=== PATIENT | female | born 1995 | race Caucasian/White ===

== ENCOUNTER 2016-05-30 20:27 | Emergency (ER) | payer OTHER ==
--- NOTE | 2016-05-30 20:46 | ER Document Report ---
ED Medical Screen (RME) - General Chief Complaint: Nausea/Vomiting/Diarrhea Stated Complaint: VOMITING Time seen by provider: 20:44 Mode of Arrival: Wheelchair Information source: Patient Notes: 21 yo female presents to ed for NVD since this am when she woke up. Vomited about 15 times today. last time around 1830 - HPI Onset: This morning Onset/Duration: Persistent Severity: Moderate Pain Level: 3 Associated Symptoms: Abdominal pain, Diarrhea, Vomiting, Other - numb hands and feet Exacerbated by: Denies Relieved by: Denies Similar symptoms previously: No Recently seen / treated by doctor: No - Related Data Smoking: Non-smoker Frequency of alcohol use: Social Drug Abuse: Marijuana Physical Exam - Vital signs Vitals: Temp Pulse Resp BP Pulse Ox 98.2 F 91 20 140/76 H 100 05/30/16 20:33 05/30/16 20:33 05/30/16 20:33 05/30/16 20:33 05/30/16 20:33 Course - Vital Signs Vital signs: Temp Pulse Resp BP Pulse Ox 98.2 F 91 20 140/76 H 100 05/30/16 20:33 05/30/16 20:33 05/30/16 20:33 05/30/16 20:33 05/30/16 20:33
[2016-05-30] MEDS ORDERED: ONDANSETRON 4 MG TAB.RAPDIS PO ONE (20:47)
[2016-05-30 21:52] LABS: ABSOLUTE LYMPHOCYTES (AUTO) 1.9 10^3/uL (0.5-4.7); ABSOLUTE MONOCYTES (AUTO) 0.7 10^3/uL (0.1-1.4); BASOPHILS % (AUTO) 0.4 % (0-2); EOSINOPHILS % (AUTO) 0.4 % (0-6); HEMATOCRIT 38.2 % (36.0-47.0); HGB HCT DIFFERENCE 0.8; LYMPHOCYTES % (AUTO) 19.8 % (13-45); MEAN CORPUSCULAR HEMOGLOBIN 29.8 pg (27.0-33.4); MEAN CORPUSCULAR HGB CONC 34.1 g/dL (32.0-36.0); MEAN CORPUSCULAR VOLUME 88 fl (80-97); MONOCYTES % (AUTO) 7.1 % (3-13); RED BLOOD COUNT 4.36 10^6/uL (3.72-5.28); RED CELL DISTRIBUTION WIDTH 12.8 % (11.5-14.0); SEGMENTED NEUTROPHILS % (AUTO) 72.3 % (42-78); WHITE BLOOD COUNT 9.7 10^3/uL (4.0-10.5)
[2016-05-30 22:18] LABS: ALANINE AMINOTRANSFERASE 52 U/L (9-52); ALBUMIN 4.3 g/dL (3.5-5.0); ALKALINE PHOSPHATASE 120 U/L (38-126); ANION GAP 15 (5-19); ASPARTATE AMINO TRANSFERASE 30 U/L (14-36); BILIRUBIN,TOTAL 0.9 mg/dL (0.2-1.3); BLOOD UREA NITROGEN 14 mg/dL (7-20); CALCIUM 9.9 mg/dL (8.4-10.2); CARBON DIOXIDE 25 mmol/L (22-30); CHLORIDE 104 mmol/L (98-107); CREATININE RESULT 0.63 mg/dL (0.52-1.25); GLUCOSE 82 mg/dL (75-110); POTASSIUM 4.5 mmol/L (3.6-5.0); SODIUM 143.6 mmol/L (137-145); TOTAL PROTEIN 7.6 g/dL (6.3-8.2)
[2016-05-31] MEDS ORDERED: NORMAL SALINE 1000 ML 2,000 ML IV ONE (00:04)
[2016-05-31] MEDS ORDERED: KETOROLAC TROMETHAMINE INJ/PF 30 MG/1 ML SDV IV ONE (01:11)
[2016-05-31] MEDS ORDERED: PROCHLORPERAZINE EDISYLATE INJ 10 MG/2 ML VIAL IV ONE (01:11)
[2016-05-31] MEDS ORDERED: DIPHENHYDRAMINE HCL 50 MG/ML VIAL IV ONE (01:11)
[2016-05-31] MEDS ORDERED: ONDANSETRON ODT 4 MG TAB (6 TAB/DSPK) PO PRN (01:19)
--- NOTE | 2016-05-31 01:19 | ER Document Report ---
ED General - General Chief Complaint: Vomiting Stated Complaint: VOMITING Mode of Arrival: Wheelchair Notes: Patient is a 21-year-old female who presents with acute onset of vomiting 5-6 hours prior to arrival. Describes it as a watery, nonbilious vomiting. She has been unable to keep water down at home. This is what prompted her come to the emergency department. Denies a recent history of similar symptoms or known sick contacts. Symptoms have gradually improved since onset. She is not tried anything to improve her symptoms and has not noticed anything other than trying oral intake worsens or symptoms. Denies any associated diarrhea or abdominal pain. No fever. She has not seen her primary care physician regarding today's concerns. TRAVEL OUTSIDE OF THE [place] IN LAST 30 DAYS: No - Related Data Allergies/Adverse Reactions: No Known Allergies Allergy (Verified 05/30/16 20:52) Past Medical History - General Information source: Patient - Social History Smoking Status: Never Smoker Chew tobacco use (# tins/day): No Frequency of alcohol use: Social Drug Abuse: Marijuana Lives with: Spouse/Significant other Family History: Reviewed & Not Pertinent Patient has suicidal ideation: No Patient has homicidal ideation: No Review of Systems - Review of Systems Notes: Constitutional: Negative for fever. HENT: Negative for sore throat. Eyes: Negative for visual changes. Cardiovascular: Negative for chest pain. Respiratory: Negative for shortness of breath. Gastrointestinal: Negative for abdominal pain, positive for vomiting Genitourinary: Negative for dysuria. Musculoskeletal: Negative for back pain. Skin: Negative for rash. Neurological: Negative for headaches, weakness or numbness. 10 point ROS negative except as marked above and in HPI. Physical Exam - Vital signs Vitals: Temp Pulse Resp BP Pulse Ox 98.2 F 91 20 140/76 H 100 05/30/16 20:33 05/30/16 20:33 05/30/16 20:33 05/30/16 20:33 05/30/16 20:33 Interpretation: Hypertensive Notes: PHYSICAL EXAMINATION: GENERAL: Well-appearing, well-nourished and in no acute distress. HEAD: Atraumatic, normocephalic. EYES: Pupils equal round and reactive to light, extraocular movements intact, sclera anicteric, conjunctiva are normal. ENT: nares patent, oropharynx clear without exudates. Moist mucous membranes. NECK: Normal range of motion, supple without lymphadenopathy LUNGS: Breath sounds clear to auscultation bilaterally and equal. No wheezes rales or rhonchi. HEART: Regular rate and rhythm without murmurs ABDOMEN: Soft, nontender, normoactive bowel sounds. No guarding, no rebound. No masses appreciated. EXTREMITIES: Normal range of motion, no pitting or edema. No cyanosis. NEUROLOGICAL: No focal neurological deficits. Moves all extremities spontaneously and on command. PSYCH: Normal mood, normal affect. SKIN: Warm, Dry, normal turgor, no rashes or lesions noted. Course - Re-evaluation Re-evalutation: 05/31/16 04:11 Presentation of an overall well-appearing patient in no acute distress with complaints of nausea, vomiting.. This is consistent with likely viral induced vomiting versus food contamination. Patient has no abdominal tenderness on exam and specifically no tenderness in the RLQ, LLQ, RUQ. Overall well hydrated on exam. Able to tolerate oral intake here in the emergency department. Low clinical suspicion for any acute life-threatening etiology based on exam and history including acute cholecystitis, SBO, appendicitis, nephrolithiasis, or pylonephritis. CMP without evidence of acute hepatitis or significant dehydration. Will plan for discharge at this time with return precautions and followup recommendations. - Vital Signs Vital signs: Temp Pulse Resp BP Pulse Ox 98.2 F 91 20 140/76 H 100 05/30/16 20:33 05/30/16 20:33 05/30/16 20:33 05/30/16 20:33 05/30/16 20:33 - Laboratory Result Diagrams: 05/30/16 21:20 05/30/16 21:20 Discharge - Discharge Clinical Impression: Dehydration Vomiting alone Qualifiers: Vomiting type: unspecified Vomiting Intractability: non-intractable Qualified Code(s): R11.11 - Vomiting without nausea Migraine headache Qualifiers: Migraine type: unspecified Status migrainosus presence: without status migrainosus Intractability: not intractable Qualified Code(s): G43.909 - Migraine, unspecified, not intractable, without status migrainosus Condition: Good Disposition: HOME, SELF-CARE Additional Instructions: Your symptoms are likely due to a viral illness and should resolve in the next several days. Continue to stay hydrated with plenty of solution such as Gatorade or Pedialyte. You are being prescribed Zofran to take as needed for nausea and vomiting. Please return if you develop if you have a worsening headache, sudden and severe headache, confusion, slurred speech, facial droop, weakness or numbness in any arm or leg, extreme fatigue, or other symptoms that concern you.severe abdominal pain, pass out, become unable to tolerate any oral fluids for 12 more hours, or any other symptoms that are concerning to you. Referrals: MARCELINO CLEVELAND FNP [Primary Care Provider] - Follow up in 3-5 days
[2016-05-31 04:44] VITALS: BP 112/69
== END 2016-05-31 02:05 | disposition home or self-care (01) ==
LOC: ER 20:27
DX: E86.0 Dehydration (principal); R11.11 Vomiting without nausea; G43.909 Migraine, unspecified, not intractable, without status migrainosus; R19.7 Diarrhea, unspecified; R10.9 Unspecified abdominal pain; R20.0 Anesthesia of skin
CPT/HCPCS: 99284; 96361; 96374; 96375; 36415; 84703; 85025; 80053; J1200; J1885; J0780; J7030

== ENCOUNTER 2018-05-07 08:08 | Emergency (ER) | payer OTHER ==
[2018-05-07 09:13] LABS: APPEARANCE,URINE SLIGHTLY-CLOUDY; BILIRUBIN,URINE NEGATIVE (NEGATIVE); COLOR,URINE YELLOW; GLUCOSE, URINE NEGATIVE (NEGATIVE); KETONES,URINE NEGATIVE (NEGATIVE); LEUKOCYTE ESTERASE,URINE SMALL (NEGATIVE); NITRITE,URINE NEGATIVE (NEGATIVE); PROTEIN,URINE 30 mg/dL (NEGATIVE); URINE SPECIFIC GRAVITY 1.013; UROBILINOGEN,URINE NEGATIVE mg/dL (<2.0)
[2018-05-07 09:18] LABS: ABSOLUTE LYMPHOCYTES (AUTO) 1.3 10^3/uL (0.5-4.7); ABSOLUTE MONOCYTES (AUTO) 0.6 10^3/uL (0.1-1.4); ABSOLUTE NEUT (AUTO) 5.9 10^3/uL (1.7-8.2); BASOPHILS % (AUTO) 0.2 % (0-2); HEMATOCRIT 37.7 % (36.0-47.0); HEMOGLOBIN 12.9 g/dL (12.0-15.5); LYMPHOCYTES % (AUTO) 16.6 % (13-45); MEAN CORPUSCULAR HEMOGLOBIN 30.8 pg (27.0-33.4); MEAN CORPUSCULAR HGB CONC 34.3 g/dL (32.0-36.0); MEAN CORPUSCULAR VOLUME 90 fl (80-97); MONOCYTES % (AUTO) 7.2 % (3-13); PLATELET COUNT 255 10^3/uL (150-450); RED CELL DISTRIBUTION WIDTH 13.1 % (11.5-14.0); TOTAL CELLS COUNTED % (AUTO) 100 %; WHITE BLOOD COUNT 7.7 10^3/uL (4.0-10.5)
--- NOTE | 2018-05-07 09:20 | ER Document Report ---
ED General - General Chief Complaint: Abdominal Pain Stated Complaint: ABDOMINAL PAIN Time Seen by Provider: 05/07/18 09:19 Mode of Arrival: Ambulatory Information source: Patient, Relative TRAVEL OUTSIDE OF THE [place] IN LAST 30 DAYS: No - HPI Notes: 20-year-old female presents ED with with complaints of sudden onset right lower quadrant abdominal pain with nausea and vomiting since yesterday. Reports pain radiates to her back, 7 and 10, sharp and constant. Feels better when she is unsure. Tried [id number] Tylenol without relief last night. reports that she did have 4-5 alcoholic beverages last night which did not help or worsen her abdominal pain. states she ended her menses yesterday. Denies any diarrhea. Denies any new foods, travel or medications. Denies fevers, chills, chest pain,palpitations, shortness of breath, dyspnea, diarrhea, hematuria, weakness, bowel or bladder dysfunction, saddle anesthesia, numbness or tingling in bilateral upper or lower extremities equally, muscle paralysis or rash. - Related Data Allergies/Adverse Reactions: No Known Allergies Allergy (Verified 05/30/16 20:52) Past Medical History - General Information source: Patient - Social History Smoking Status: Never Smoker Chew tobacco use (# tins/day): No Frequency of alcohol use: Heavy Drug Abuse: Marijuana Family History: Reviewed & Not Pertinent Patient has suicidal ideation: No Patient has homicidal ideation: No Renal/ Medical History: Denies: Hx Peritoneal Dialysis Review of Systems - Review of Systems Constitutional: No symptoms reported EENT: No symptoms reported Cardiovascular: No symptoms reported Respiratory: No symptoms reported Gastrointestinal: See HPI Genitourinary: No symptoms reported Female Genitourinary: No symptoms reported Musculoskeletal: No symptoms reported Skin: No symptoms reported Hematologic/Lymphatic: No symptoms reported Neurological/Psychological: No symptoms reported Physical Exam - Vital signs Vitals: Temp Pulse Resp BP Pulse Ox 97.8 F 76 16 126/76 H 99 05/07/18 08:10 05/07/18 08:10 05/07/18 08:10 05/07/18 08:10 05/07/18 08:10 - Notes Notes: PHYSICAL EXAMINATION: GENERAL: Well-appearing, well-nourished and in no acute distress. HEAD: Atraumatic, normocephalic. EYES: Pupils equal round and reactive to light, extraocular movements intact, conjunctiva are normal. ENT: Nares patent, oropharynx clear without exudates. Moist mucous membranes. NECK: Normal range of motion, supple without lymphadenopathy LUNGS: Breath sounds clear to auscultation bilaterally and equal. No wheezes rales or rhonchi. HEART: Regular rate and rhythm without murmurs ABDOMEN: Soft, nondistended abdomen. Right lower quadrant tenderness on palpation with rebound, negative McBurney sign, no guarding, no rebound. No masses appreciated. right CVA tenderness, no left cva tenderness. Female : deferred Musculoskeletal: Normal range of motion, no pitting or edema. No cyanosis. NEUROLOGICAL: Cranial nerves grossly intact. Normal speech, normal gait. Normal sensory, motor exams PSYCH: Normal mood, normal affect. SKIN: Warm, Dry, normal turgor, no rashes or lesions noted. Course - Re-evaluation Re-evalutation: 05/07/18 09:32 32-year-old female afebrile vitals stable and in mild distress presents to the ED for complaints of onset nausea with right lower quadrant right CVA tenderness that started last night, states she did drink some alcohol without relief. CBC negative for leukocytosis or anemia, CMP negative for hepatic or renal dysfunction. Urinalysis does show leuks, hematuria sites along with proteinuria. CT abdomen and pelvis negative per radiology for any acute findings such as appendicitis, renal calculi, free fluid, intra-abdominal infection, etc. patient given Toradol IVP with great relief, reduction of pain from 7 out of 10 to 4 out of 10. Serum negative alcohol serum negative as well as drug screen besides being positive for marijuana. Discussed the patient that she does have pyelonephritis, will give her 1 g Rocephin now as well as starting her on outpatient antibiotic therapy. Advised to increase p.o. fluid. I have reevaluated this patient multiple times and no significant life threatening changes, no signs of toxicity, sepsis or peritonitis are noted. The patient and I have discussed the diagnosis and risks , and we agree with discharging home and close follow-up. We also discussed returning to the Emergency Department immediately if new or worsening symptoms occur with the understanding that symptoms and presentations can change. At this time will discharge with return precautions and follow-up recommendations. Verbal discharge instructions given a the bedside and opportunity for questions given. We have discussed the symptoms which are most concerning (e.g. , vomiting, fevers, worsening abdominal pain, saddle anesthesia, urinary or bowel incontinence or retention, changing or worsening pain) that necessitate immediate return. Medication warnings reviewed. All questions and concerns answered by this provider. Patient is in agreement with this plan and has verbalized understanding of return precautions and the need for primary care follow-up in the next 24-72 hours. Patient verbalized understanding of plan of care and agree with plan of care. - Vital Signs Vital signs: Temp Pulse Resp BP Pulse Ox 97.5 F 74 16 113/72 98 05/07/18 13:06 05/07/18 13:06 05/07/18 13:06 05/07/18 13:06 05/07/18 13:06 - Laboratory Result Diagrams: 05/07/18 09:01 05/07/18 09:01 Laboratory results interpreted by me: 05/07/18 08:47 Urine Protein 30 H Urine Blood SMALL H Ur Leukocyte Esterase SMALL H Discharge - Discharge Clinical Impression: Pyelonephritis Condition: Stable Disposition: HOME, SELF-CARE Instructions: Abdominal Pain ([facility]), Ciprofloxacin ([facility]), Pyelonephritis ([facility]), Rocephin ([facility]), Toradol Injection ([facility]), Observation for Appendicitis ([facility]) Additional Instructions: Pyelonephritis Your evaluation shows evidence of pyelonephritis. This is an infection in the kidney. Typical symptoms are fever, pain in the flank, pain on urination, and frequent urination. Many cases of pyelonephritis can be treated at home. Hospital care may be necessary for patients who are very ill, or elderly or . Pyelonephritis is treated with antibiotics. Be sure to take all the medication as prescribed. Drink plenty of liquids (about three quarts per day) . You may take acetaminophen for fever. You should feel significantly improved within two days. You should have a recheck of your urine in about one week to insure that the infection is gone. Return for a re-examination if your symptoms worsen in any way -- such as high fever, shaking chills, severe weakness or dizziness, severe pain, or inability to pass your urine. Abdominal Pain There are many causes of abdominal pain. Pain can mean a serious problem requiring surgery (such as appendicitis). It can also be an innocent problem that goes away on its own (such as a viral infection). Often, time must pass to determine the cause of pain. The physician does not feel that hospitalization is necessary, at present. Things may change within the next 24 hours. Call the doctor or come back for re- examination if any problems occur, such as: (1) Pain that becomes more severe, steady, or becomes concentrated in one specific area. Also, pain that is more severe with movement or coughing. (2) Vomiting that persists or becomes more frequent. (3) Blood in the vomitus, urine, or bowel movements. Blood in the stool may have a tarry or black appearance. (4) Shaking chills or fever greater than 100 degrees F. (5) The abdomen becomes more distended or swollen. (6) Bowel movements cease. (7) Failure to improve as expected. Your urinalysis showed he had a pyelonephritis. Your blood work was negative for blood or infection, electrolytes were normal. Your CT was negative for any acute findings. Return immediately for any new or worsening symptoms. Follow up with primary care provider, call tomorrow to make followup appointment. Prescriptions: Ciprofloxacin HCl [Cipro 500 mg Tablet] 500 mg PO BID #20 tablet Phenazopyridine HCl [Pyridium] 200 mg PO TIDP PRN #9 tablet PRN Reason: Forms: Return to Work Referrals: MARCELINO CLEVELAND FNP [Primary Care Provider] - Follow up tomorrow
[2018-05-07] MEDS ORDERED: NORMAL SALINE 1000 ML 1,000 ML IV ONE (09:21)
[2018-05-07] MEDS ORDERED: KETOROLAC TROMETHAMINE INJ/PF 30 MG/1 ML SDV IV ONE (09:28)
[2018-05-07 09:42] LABS: ALANINE AMINOTRANSFERASE 26 U/L (9-52); ALBUMIN 4.5 g/dL (3.5-5.0); ALKALINE PHOSPHATASE 101 U/L (38-126); ANION GAP 10 (5-19); ASPARTATE AMINO TRANSFERASE 27 U/L (14-36); BILIRUBIN,DIRECT 0.3 mg/dL (0.0-0.4); BILIRUBIN,TOTAL 0.9 mg/dL (0.2-1.3); BLOOD UREA NITROGEN 11 mg/dL (7-20); CALCIUM 9.6 mg/dL (8.4-10.2); CARBON DIOXIDE 27 mmol/L (22-30); CHLORIDE 106 mmol/L (98-107); GLUCOSE 90 mg/dL (75-110); LIPASE 114.2 U/L (23-300); POTASSIUM 4.7 mmol/L (3.6-5.0); SODIUM 142.6 mmol/L (137-145); TOTAL PROTEIN 7.4 g/dL (6.3-8.2)
--- NOTE | 2018-05-07 10:43 | RADIOLOGY REPORT (SQ) ---
EXAM DESCRIPTION: CT ABD/PELVIS WITH IV ONLY COMPLETED DATE/TIME: 05/07/2018 10:23 am REASON FOR STUDY: RLQ abd pain with vomiting x 1 day COMPARISON: None. TECHNIQUE: CT scan of the abdomen and pelvis performed using helical scanning technique with dynamic intravenous contrast injection. No oral contrast. Images reviewed with lung, soft tissue, and bone windows. Reconstructed coronal and sagittal MPR images reviewed. Delayed images for evaluation of the urinary system also acquired. All images stored on PACS. All CT scanners at this facility use dose modulation, iterative reconstruction, and/or weight based d osing when appropriate to reduce radiation dose to as low as reasonably achievable (ALARA). [facility]: Dose Right [facility]: CareDose [facility]: Dose Right [facility]: Teradose 4D [facility]: [employer] CONTRAST TYPE AND DOSE: contrast/concentration: Isovue 350.00 mg/ml; Total Contrast Delivered: 100.0 ml; Total Saline Delivered: 70.0 ml RENAL FUNCTION: None required. The patient is less than 50 years old. RADIATION DOSE: CT Rad equipment meets quality standard of care and radiation dose reduction techniq ues were employed. CTDIvol: 12.0 - 13.0 mGy. DLP: 1398 mGy-cm.. LIMITATIONS: None. FINDINGS: LOWER CHEST: No significant findings. No nodules or infiltrates. LIVER: Normal size. No masses. No dilated ducts. The hepatic and portal veins are patent. SPLEEN: Splenule, normal anatomic variant. Normal size. No focal lesions. PANCREAS: No masses. No significant calcifications. No adjacent inflammation or peripancreatic fluid collections. Pancreatic duct not dilated. GALLBLADDER: No identified stones by CT criteria. No inflammatory changes to suggest cholecystitis. ADRENAL GLANDS: No significant masses or asymmetry. RIGHT KIDNEY AND URETER: No solid masses. No significant calcifications. No hydronephrosis or hyd roureter. LEFT KIDNEY AND URETER: No solid masses. No significant calcifications. No hydronephrosis or hydr oureter. AORTA AND VESSELS: No aneurysm. No dissection. Renal arteries, SMA, celiac without stenosis. RETROPERITONEUM: No retroperitoneal adenopathy, hemorrhage or masses. BOWEL AND PERITONEAL CAVITY: No masses or inflammatory changes. No free fluid or peritoneal masses. APPENDIX: Normal. PELVIS: Small hypoattenuated structures in the adnexal regions bilaterally, may represent ovarian fo llicles. No mass. No free fluid. Normal bladder. ABDOMINAL WALL: No masses. No hernias. BONES: No significant or acute findings. OTHER: No other significant finding. IMPRESSION: 1. NO SIGNIFICANT OR ACUTE FINDING IN THE ABDOMEN OR PELVIS. 2. Small hypoattenuated structures in the bilateral adnexal regions, may represent small ovarian fol licles. TECHNICAL DOCUMENTATION: JOB ID: [id number] Quality ID # [id number]: Final reports with documentation of one or more dose reduction techniques (e.g., Au tomated exposure control, adjustment of the mA and/or kV according to patient size, use of iterative reconstruction technique) 2010 [employer]- All Rights Reserved Reading location - IP/workstation name: [email or web address]
[2018-05-07 10:52] LABS: URINE AMPHETAMINES SCREEN NEGATIVE; URINE BARBITURATES SCREEN NEGATIVE; URINE BENZODIAZEPINES SCREEN NEGATIVE; URINE COCAINE SCREEN NEGATIVE; URINE MARIJUANA (THC) SCREEN UNCONFIRMED POSITIVE; URINE METHADONE SCREEN NEGATIVE; URINE PHENCYCLIDINE SCREEN NEGATIVE
[2018-05-07] MEDS ORDERED: CEFTRIAXONE INJ 1000 MG VIAL IV ONE (11:47)
[2018-05-07 13:08] VITALS: BP 113/72
== END 2018-05-07 13:31 | disposition home or self-care (01) ==
LOC: ER 08:08
DX: N12 Tubulo-interstitial nephritis, not specified as acute or chronic (principal); R10.31 Right lower quadrant pain; R11.2 Nausea with vomiting, unspecified; R31.9 Hematuria, unspecified; R80.9 Proteinuria, unspecified; F12.10 Cannabis abuse, uncomplicated
CPT/HCPCS: 99284; 96361; 96375; 96365; 36415; 87086; 80307 ×2; 83690; 85025; 81025; 87088; 80053; 81001; 87186; 74177; J1885; J0696; J7030

== ENCOUNTER 2019-06-07 19:30 | Emergency (ER) | payer OTHER ==
[2019-06-07] MEDS ORDERED: MORPHINE SULFATE 10 MG/ML INJ IV ONE (20:00)
[2019-06-07] MEDS ORDERED: ONDANSETRON HCL INJ/PF 4 MG/2 ML SDV IV ONE (20:00)
[2019-06-07] MEDS ORDERED: NORMAL SALINE 1000 ML 1,000 ML IV ONE (20:01)
--- NOTE | 2019-06-07 20:03 | ER Document Report ---
ED Medical Screen (RME) - General Chief Complaint: Flank Pain Stated Complaint: LOWER BACK PAIN Time Seen by Provider: 06/07/19 19:56 Primary Care Provider: MARCELINO CLEVELAND FNP [Primary Care Provider] - Follow up as needed Mode of Arrival: Ambulatory Information source: Patient Notes: 24-year-old otherwise healthy female presented emergency department with bilateral flank pain, abdominal pain and vomiting. Patient reports symptoms started abruptly this morning. Patient states symptoms have gotten worse through the day. Patient denies any fevers. Patient reports pain is worse on the left side. Exam: Diffuse tenderness across the abdomen. I have greeted and performed a rapid initial assessment of this patient. A comprehensive ED assessment and evaluation of the patient, analysis of test results and completion of the medical decision making process will be conducted by additional ED providers. I have specifically instructed the patient or family members with the patient to immediately return to any nursing staff should anything change in the patient's condition or with their chief complaint. TRAVEL OUTSIDE OF THE [place] IN LAST 30 DAYS: No - Related Data Allergies/Adverse Reactions: No Known Allergies Allergy (Verified 05/30/16 20:52) Home Medications: control Past Medical History - Social History Frequency of alcohol use: Occasional Drug Abuse: Marijuana Renal/ Medical History: Denies: Hx Peritoneal Dialysis Physical Exam - Vital signs Vitals: Temp Pulse Resp BP Pulse Ox 98.7 F 86 20 119/49 L 98 06/07/19 19:45 06/07/19 19:45 06/07/19 19:45 06/07/19 19:45 06/07/19 19:45 Course - Vital Signs Vital signs: Temp Pulse Resp BP Pulse Ox 98.7 F 86 20 119/49 L 98 06/07/19 19:45 06/07/19 19:45 06/07/19 19:45 06/07/19 19:45 06/07/19 19:45 Doctor's Discharge - Discharge Referrals: MARCELINO CLEVELAND FNP [Primary Care Provider] - Follow up as needed
[2019-06-07 20:39] LABS: ABSOLUTE BASOPHILS # (AUTO) 0.1 10^3/uL (0.0-0.2); ABSOLUTE LYMPHOCYTES (AUTO) 2.2 10^3/uL (0.5-4.7); ABSOLUTE MONOCYTES (AUTO) 0.6 10^3/uL (0.1-1.4); ABSOLUTE NEUT (AUTO) 8.2 10^3/uL (1.7-8.2); BASOPHILS % (AUTO) 0.6 % (0-2); HEMOGLOBIN 13.7 g/dL (12.0-15.5); MEAN CORPUSCULAR HEMOGLOBIN 31.5 pg (27.0-33.4); MEAN CORPUSCULAR HGB CONC 35.1 g/dL (32.0-36.0); MEAN CORPUSCULAR VOLUME 90 fl (80-97); MONOCYTES % (AUTO) 5.6 % (3-13); PLATELET COUNT 295 10^3/uL (150-450); RED BLOOD COUNT 4.36 10^6/uL (3.72-5.28); RED CELL DISTRIBUTION WIDTH 12.2 % (11.5-14.0); SEGMENTED NEUTROPHILS % (AUTO) 73.8 % (42-78); TOTAL CELLS COUNTED % (AUTO) 100 %; WHITE BLOOD COUNT 11.1 10^3/uL (4.0-10.5)
[2019-06-07 20:49] LABS: APPEARANCE,URINE SLIGHTLY-CLOUDY; BILIRUBIN,URINE NEGATIVE (NEGATIVE); COLOR,URINE YELLOW; GLUCOSE, URINE NEGATIVE (NEGATIVE); KETONES,URINE 20 mg/dL (NEGATIVE); LEUKOCYTE ESTERASE,URINE SMALL (NEGATIVE); NITRITE,URINE NEGATIVE (NEGATIVE); PROTEIN,URINE 100 mg/dL (NEGATIVE); URINE SPECIFIC GRAVITY 1.015; UROBILINOGEN,URINE NEGATIVE mg/dL (<2.0)
[2019-06-07 21:08] LABS: ALBUMIN 4.6 g/dL (3.5-5.0); ALKALINE PHOSPHATASE 117 U/L (38-126); ANION GAP 12 (5-19); ASPARTATE AMINO TRANSFERASE 51 U/L (14-36); BILIRUBIN,DIRECT 0.2 mg/dL (0.0-0.4); BILIRUBIN,TOTAL 0.7 mg/dL (0.2-1.3); BLOOD UREA NITROGEN 8 mg/dL (7-20); CARBON DIOXIDE 22 mmol/L (22-30); CHLORIDE 102 mmol/L (98-107); GLUCOSE 96 mg/dL (75-110); TOTAL PROTEIN 8.3 g/dL (6.3-8.2)
--- NOTE | 2019-06-07 21:40 | RADIOLOGY REPORT (SQ) ---
EXAM DESCRIPTION: CT ABDOMEN PELVIS WITH IV CONTRAST COMPLETED DATE/TME: 06/07/2019 20:01 CLINICAL HISTORY: 24 years, Female, flank/abd pain COMPARISON: Prior study from 05/07/2018 TECHNIQUE: Contrast enhanced CT of the abdomen/pelvis was performed. Images were obtained after the uneventful administration of 100 mL of Omnipaque 350 intravenous contrast. Images stored on PACS. All CT scanners at this facility use dose modulation, iterative reconstruction, and/or weight based dosing when appropriate to reduce radiation dose to as low as reasonably achievable (ALARA). [facility]: Dose Right [facility]: CareDose [facility]: Dose Right [facility]: Teradose 4D [facility]: [employer] LIMITATIONS: None. FINDINGS: Limited evaluation of the lower chest reveals patchy groundglass opacity about the right lower lobe on image 12 of series 4, likely infectious/inflammatory in etiology given the patient's age. The liver, spleen, pancreas, gallbladder, and both adrenal glands appear normal. Both kidneys enhance symmetrically. There is no hydronephrosis or hydroureter. The urinary bladder is collapsed, thus its evaluation is limited. Uterus and both ovaries show no suspicious abnormality. Small and large bowel are normal in caliber. No evidence of bowel obstruction. The appendix is normal. A circumaortic left renal vein is noted. Otherwise, vascular structures appeared opacify with contrast normally. No suspicious lymphadenopathy or drainable fluid collections are appreciated. Bone windows show no destructive osseous lesions. IMPRESSION: No acute abnormality within the abdomen or pelvis. Focal patchy groundglass opacity within the right lower lobe most likely indicates an infectious/inflammatory process given the patient's age. TECHNICAL DOCUMENTATION: Quality ID # 436: Final reports with documentation of one or more dose reduction techniques (e.g., Automated exposure control, adjustment of the mA and/or kV according to patient size, use of iterative reconstruction technique) copyright 2010 [employer]- All Rights Reserved
[2019-06-07 22:35] VITALS: BP 126/83
--- NOTE | 2019-06-07 23:53 | ER Document Report ---
ED General - General Chief Complaint: Flank Pain Stated Complaint: LOWER BACK PAIN Time Seen by Provider: 06/07/19 19:56 Primary Care Provider: MARCELINO CLEVELAND FNP [Primary Care Provider] - Follow up as needed Mode of Arrival: Ambulatory Information source: Patient Notes: Patient reports that she noted left flank pain today that reminded her of her prior urinary tract infection that she has had before. Also she is concerned that she may have a kidney stone as well. Patient is noted pain with urination. More so than frequency and urgency. Patient has had a recent URI cold symptoms over the past week or 2. Patient took [id number] medications. Patient has a history of irritable bowel syndrome drome with intermittent constipation and diarrhea. Patient denies vaginal discharge as well as no prior history personally of ovarian cystic disease. No prior history of appendicitis or diverticulitis or colitis. TRAVEL OUTSIDE OF THE [place] IN LAST 30 DAYS: No - HPI Onset: This morning Onset/Duration: Gradual Quality of pain: Cramping, Pressure Severity: Severe Pain Level: 5 Associated symptoms: Nonproductive cough, Nausea, Vomiting Exacerbated by: Other - Patient states that she cannot keep food down today or of liquids due to nausea and vomiting Similar symptoms previously: Yes Recently seen / treated by doctor: No - Related Data Allergies/Adverse Reactions: No Known Allergies Allergy (Verified 05/30/16 20:52) Home Medications: control Past Medical History - General Information source: Patient - Social History Smoking Status: Current Some Day Smoker Frequency of alcohol use: Patient reports that she is alcohol free so for 2019. 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 Denies: Hx Peritoneal Dialysis Malignancy Medical History: Reports: None GI Medical History: Reports: Other - Irritable bowel syndrome Musculoskeletal Medical History: Reports None Skin Medical History: Reports None Psychiatric Medical History: Reports: None Infectious Medical History: Reports: None Surgical Hx: Negative - Immunizations Immunizations up to date: Yes Physical Exam - Vital signs Vitals: Temp Pulse Resp BP Pulse Ox 98.7 F 86 20 119/49 L 98 06/07/19 19:45 06/07/19 19:45 06/07/19 19:45 06/07/19 19:45 06/07/19 19:45 Course - Re-evaluation Re-evalutation: 06/08/19 02:11 Patient's pain is better and after another round IV morphine and Zofran. Patient also has received IV antibiotics and feels much better at this time. Devin lindsay is ready for discharge home at this time. - Vital Signs Vital signs: Temp Pulse Resp BP Pulse Ox 97.9 F 75 18 126/83 H 100 06/07/19 22:34 06/07/19 22:34 06/07/19 22:34 06/07/19 22:34 06/07/19 22:34 - Laboratory Result Diagrams: 06/07/19 20:15 06/07/19 20:15 Laboratory results interpreted by me: 06/07/19 06/07/19 06/07/19 20:15 20:15 20:34 WBC 11.1 H Sodium 136.1 L AST 51 H Total Protein 8.3 H Urine Protein 100 H Urine Ketones 20 H Ur Leukocyte Esterase SMALL H 06/08/19 02:[address] scan. Patient has an incidental finding of pneumonitis in the right lower lung base. Abdominal CT scan does not show any acute process at this time. Patient will be treated with antibiotics in case that there is undiagnosed diverticulitis on CT scan also patient has a pneumonitis in the right lung base of therefore Augmentin is going to be a drug of choice. Patient also is instructed that we are going to put on stool softeners as well. - Diagnostic Test Radiology reviewed: Image reviewed, Reports reviewed Discharge - Discharge Clinical Impression: Abdominal pain, Pneumonia, Pyuria Condition: Stable Disposition: HOME, SELF-CARE Instructions: Abdominal Pain ([facility]), Bulk Laxatives Additional Instructions: Urinary Tract Infection Your evaluation indicates that you have a urinary tract infection. This is due to germs growing in the bladder. This is a common problem. This infection usually responds quickly to antibiotics. Your antibiotic should be taken exactly as prescribed. Drink plenty of fluids -- three to four quarts a day. Occasionally, a bladder anesthetic will be prescribed to help stop the feeling of urgency until the antibiotic has a chance to clear the infection. This may cause your urine to be dark orange. Certain urine infections require a culture. If the doctor obtained a culture, the results will be back in two days. You should call to see if a change in treatment is needed. A repeat urinalysis after you finish treatment is often recommended. The physician will let you know if further testing is required. Call the doctor if you develop fever, chills, flank pain, inability to urinate, or blood in the urine. Pneumonia Your examination indicates that you have pneumonia. This is an infection of the lung tissue, usually caused by bacteria or a virus. Symptoms include cough, fever, shaking chills, chest pain, shortness of breath, and coughing up bloody sputum. Treatment for bacterial pneumonia includes rest, antibiotics for 10 to 14 days, increasing your clear liquid intake, a cool mist humidifier at your bedside, and fever medication. Often, a repeat chest X-ray is performed in a few weeks--even if you feel better--to ascertain whether the infection has completely resolved and no underlying lung problem is present. You should call the physician if you develop persistent vomiting, high fever that does not respond to fever medication, increasing shortness of breath, confusion, or lethargy. Also, failure to improve within two to three days is an indication for re-examination. Prescriptions: Amox Tr/Potassium Clavulanate [Augmentin 875-125 mg Tablet] 1 tab PO BID #20 tablet Polyethylene Glycol 3350 [Miralax Powder 17 gm/Packet] 17 gm PO DAILY 7 Days #7 powd.pack Referrals: MARCELINO CLEVELAND FNP [Primary Care Provider] - Follow up as needed
[2019-06-08] MEDS ORDERED: PIPERACILLIN/TAZOBACTAM 3.375 GM VIAL IV ONE (00:18)
[2019-06-08] MEDS ORDERED: ONDANSETRON HCL INJ/PF 4 MG/2 ML SDV IV ONE (00:19)
[2019-06-08] MEDS ORDERED: MORPHINE SULFATE 10 MG/ML INJ IV ONE (00:19)
== END 2019-06-08 02:29 | disposition home or self-care (01) ==
LOC: ER 19:30
DX: J18.9 Pneumonia, unspecified organism (principal); R82.81 Pyuria; R10.9 Unspecified abdominal pain; M54.5 Low back pain; R30.9 Painful micturition, unspecified; K59.00 Constipation, unspecified; R19.7 Diarrhea, unspecified; R05 Cough; R11.2 Nausea with vomiting, unspecified; F17.200 Nicotine dependence, unspecified, uncomplicated
CPT/HCPCS: 96376; 99284; 96361; 96375; 96365; 36415; 83690; 85025; 81025; 80053; 81001; 74177; J2270 ×2; J2405 ×2; J7030; J2543

== ENCOUNTER 2019-12-13 17:07 | Emergency (ER) | payer OTHER ==
--- NOTE | 2019-12-13 17:58 | ER Document Report ---
ED Extremity Problem, Lower - General Chief Complaint: Leg Pain Stated Complaint: KNEE/BACK PAIN Time Seen by Provider: 12/13/19 17:23 Primary Care Provider: MARCELINO CLEVELAND FNP [NO LOCAL MD] - Follow up as needed FIDEL RAMIREZ DO [ACTIVE STAFF] - Follow up as needed Mode of Arrival: Wheelchair Information source: Patient Notes: Patient is a 24-year-old female comes emergency room complaining of low back pain with radiation down the left leg with knee pain and swelling and now recently with left calf pain and swelling. Patient states the original injury she believe occurred on 26 November. She denies any known traumatic events but was at the beach all day walking up and down in the soft sand. The next morning she had some knee pain and swelling. Since that point time it is also progressively got worse with low back pain radiation down the left buttocks and into the lateral leg and then into the posterior calf. Patient also states that she is attempted to go to a chiropractor for 3 sessions he has adjusted her back without any relief. She denies any other medical problems. She does smoke and she came off control oral medication approximately 2 months ago. TRAVEL OUTSIDE OF THE [place] IN LAST 30 DAYS: No - HPI Patient complains to provider of: Pain, Swelling Location: Buttock, Hip, Leg - 3. Regular Occurred: Other - 16 days ago Where: Outdoors, Public place, Other - At the beach Onset/Duration: Gradual Quality of pain: Sharp, Stabbing, Throbbing Severity: Severe Pain Level: 4 Context: denies: Direct blow, Recent immobilization, Recent surgery, Recent travel, Stubbed, Wearing shoes Recent injury: No Exacerbated by: Movement, Walking Relieved by: Nothing - Related Data Allergies/Adverse Reactions: No Known Allergies Allergy (Verified 05/30/16 20:52) Past Medical History - General Information source: Patient - Social History Smoking Status: Current Every Day Smoker Cigarette use (# per day): Yes - Half pack a day Chew tobacco use (# tins/day): No Smoking Education Provided: Yes Frequency of alcohol use: Daily Drug Abuse: Marijuana Lives with: Family Family History: Reviewed & Not Pertinent, Other - Irritable bowel syndrome Patient has homicidal ideation: No Renal/ Medical History: Denies: Hx Peritoneal Dialysis - Immunizations Immunizations up to date: Yes Review of Systems - Review of Systems Constitutional: No symptoms reported EENT: No symptoms reported Cardiovascular: No symptoms reported Respiratory: No symptoms reported Gastrointestinal: No symptoms reported Genitourinary: No symptoms reported Female Genitourinary: No symptoms reported Musculoskeletal: See HPI, Joint pain, Joint swelling, Muscle pain, Leg swelling Skin: No symptoms reported Hematologic/Lymphatic: No symptoms reported Neurological/Psychological: No symptoms reported Physical Exam - Vital signs Vitals: Temp Pulse Resp BP Pulse Ox 99 F 113 H 19 122/81 100 12/13/19 17:14 12/13/19 17:14 12/13/19 17:14 12/13/19 17:14 12/13/19 17:14 Interpretation: Hypertensive, Tachycardic - Notes Notes: PHYSICAL EXAMINATION: GENERAL: Patient is a well-nourished well-developed 24-year-old female who is in no apparent distress on physical exam today however she does appear to be very uncomfortable. HEAD: Atraumatic, normocephalic. ENT: Nares patent, oropharynx clear without exudates. Moist mucous membranes. LUNGS: Breath sounds clear to auscultation bilaterally and equal. No wheezes rales or rhonchi. HEART: Tachycardic rhythm without murmurs. Musculoskeletal: Examination patient very concerned primary left knee. Patient has moderate amount of swelling on the left leg compared to the right. The dimensions of the left leg show the left calf to be 18 inches at its midpoint the left need to be 18 inches at its midpoint and the right knee shows to be 17 inches at its midpoint and the right calf at 16 inches at its midpoint. Patient has moderate amount of swelling noted circumferentially to those areas on the left side. She displays good dorsalis pedal pulse of 2+ bilaterally. She has good flexion-extension at the ankle. She has good popliteal pulse palpated bilaterally. She has moderate amount of tenderness to palpation along the left knee laterally and as well as medially and with a patella compression. She has no laxity noted in any plane. Back: Examination patient's other complaint is her low back. Mild palpation to the lower lumbar region at L4 and 5 shows tenderness with increased pain and discomfort at the sciatic notch with deep palpation. There is noted radiculopathy running down the left buttocks and lateral leg when pressure is applied to that area. Patient did display good DTRs in the bilateral lower extremities. Also to note patient has good sensation from the inner ankles to the groin as well as the outer ankles to the hips. Therefore there appears to be no saddle paresthesia. Heel-to-toe patient has good motion and good muscle tone no sign of a cauda equina syndrome. NEUROLOGICAL: Normal speech, normal gait. Normal sensory, motor exams PSYCH: Normal mood, normal affect. SKIN: Warm, Dry, normal turgor, no rashes or lesions noted. Course - Re-evaluation Re-evalutation: 12/13/19 23:35 It took forever for ultrasound to do the DVT study on patient's left lower extremity. Ultrasound grow came back so that she is not sure exactly what was wrong but there was not a normal finding although she did not have any blood clot. She stated that in the knee area there was a large amount of fluid with debris and that in the upper leg the tib-fib area there appeared to be some type of a growth. She recommended we go further investigation. And do so to work patient up the only abnormalities was the CRP of 52.2. CT only showed effusion in the knee and that the upper leg showed nothing at this time. White count was normal. Given that the findings were more consistent with internal derangement of the knee. I have informed patient she needs to be in a knee immobilizer and nonweightbearing until she sees orthopedist. Given that patient had noticeable swelling of the left leg compared to the right leg and discussing with her walking along the beach I really feel this is more meniscus than anything else. Patient is slightly unhappy because we are not able to give her an exact reason why her leg is bigger than the right. But we have ruled out a blood clot or DVT in the leg and no sign of anything abnormal besides fluid and debris in the knee area. 12/13/19 23:37 - Vital Signs Vital signs: Temp Pulse Resp BP Pulse Ox 98.9 F 89 18 120/79 100 12/14/19 00:37 12/14/19 00:37 12/14/19 00:37 12/14/19 00:37 12/14/19 00:37 - Laboratory Result Diagrams: 12/13/19 21:35 12/13/19 21:35 Laboratory results interpreted by me: 12/13/19 21:35 Sodium 135.9 L C-Reactive Protein 52.5 H Procedures - Immobilization Left Knee Time completed: 23:38 Pre-Proc Neuro Vasc Exam: Normal Immobilizer type: Crutches, Knee immobilizer Performed by: RN Post-Proc Neuro Vasc Exam: Normal Alignment checked and good: Yes Discharge - Discharge Clinical Impression: Internal derangement of left knee Condition: Stable Disposition: HOME, SELF-CARE Instructions: Use of Crutches ([facility]), Ice & Elevation ([facility]), Suspected Internal Knee Injury ([facility]), Knee Immobilizing Splint ([facility]), Oral Narcotic Medication ([facility]) Additional Instructions: As we discussed the ultrasound showed that there was no blood clot or DVT in her lower extremity on the left side. Though your presentation is that of a meniscus type of injury with debris in the fluid this is why the lower leg swelling as well from fluid leaking down into the leg. You may consider trying a support stocking that is thigh-high as well which will help with the fluid overload. But nonweightbearing for at least 3 days. Would suggest that you schedule an appointment with orthopedist. If you do not have one I am giving you the name of the orthopedic on-call. Should you have any concerns or problems goes return to ER for reevaluation. I am also giving you a steroid pack since there is an inflammatory type of presentation and I will place you on a couple of days of pain medication as well. Prescriptions: Hydrocodone/Acetaminophen [Anna 5-325 mg Tablet] 1 tab PO Q6 PRN #12 tablet PRN Reason: Prednisone 10 mg PO ASDIR PRN 6 Days #1 tab.ds.pk PRN Reason: Forms: Elevated Blood Pressure, Return to Work Referrals: MARCELINO CLEVELAND FNP [NO LOCAL MD] - Follow up as needed FIDEL RAMIREZ DO [ACTIVE STAFF] - Follow up as needed
--- NOTE | 2019-12-13 18:25 | RADIOLOGY REPORT (SQ) ---
EXAM DESCRIPTION: KNEE LEFT 4 VIEW IMAGES COMPLETED DATE/TIME: 12/13/2019 6:12 pm REASON FOR STUDY: pain COMPARISON: None. NUMBER OF VIEWS: Four views. TECHNIQUE: AP, lateral, and both oblique radiographic images acquired of the left knee. LIMITATIONS: None. FINDINGS: MINERALIZATION: Normal. BONES: No acute fracture or dislocation. No worrisome bone lesions. JOINT: Small joint effusion. SOFT TISSUES: No soft tissue swelling. No radio-opaque foreign body. OTHER: No other significant finding. IMPRESSION: Small joint effusion. No other significant finding. TECHNICAL DOCUMENTATION: JOB ID: [id number] 2010 [employer]- All Rights Reserved Reading location - IP/workstation name: [email or web address]
--- NOTE | 2019-12-13 18:26 | RADIOLOGY REPORT (SQ) ---
EXAM DESCRIPTION: L SPINE WHOLE IMAGES COMPLETED DATE/TIME: 12/13/2019 6:12 pm REASON FOR STUDY: sciatica [id number] COMPARISON: None. NUMBER OF VIEWS: Five views including obliques. TECHNIQUE: AP, lateral, oblique, and sacral radiographic images acquired of the lumbar spine. LIMITATIONS: None. FINDINGS: MINERALIZATION: Normal. SEGMENTATION: Normal. No transitional anatomy. ALIGNMENT: Normal. VERTEBRAE: Maintained height. No fracture or worrisome bone lesion. DISCS: Preserved height. No significant osteophytes or end plate irregularity. POSTERIOR ELEMENTS: Pedicles and facets are intact. No pars defect or posterior arch defects. HARDWARE: None in the spine. PARASPINAL SOFT TISSUES: Normal. PELVIS: Intact as visualized. No fractures or worrisome bone lesions. SI joints intact. OTHER: No other significant finding. IMPRESSION: NORMAL 5 VIEW LUMBAR SPINE. TECHNICAL DOCUMENTATION: JOB ID: [id number] 2010 [employer]- All Rights Reserved Reading location - IP/workstation name: [email or web address]
[2019-12-13] MEDS ORDERED: HYDROCODONE/ACETAMINOPHEN 5-325 MG TABLET PO ONE (20:56)
[2019-12-13 21:47] LABS: ABSOLUTE EOSINOPHILS # (AUTO) 0.1 10^3/uL (0.0-0.6); ABSOLUTE LYMPHOCYTES (AUTO) 1.8 10^3/uL (0.5-4.7); ABSOLUTE MONOCYTES (AUTO) 0.6 10^3/uL (0.1-1.4); ABSOLUTE NEUT (AUTO) 5.8 10^3/uL (1.7-8.2); BASOPHILS % (AUTO) 0.5 % (0-2); EOSINOPHILS % (AUTO) 1.3 % (0-6); HEMATOCRIT 36.9 % (36.0-47.0); HEMOGLOBIN 12.7 g/dL (12.0-15.5); LYMPHOCYTES % (AUTO) 21.3 % (13-45); MEAN CORPUSCULAR HGB CONC 34.4 g/dL (32.0-36.0); MEAN CORPUSCULAR VOLUME 93 fl (80-97); MONOCYTES % (AUTO) 7.5 % (3-13); PLATELET COUNT 305 10^3/uL (150-450); RED BLOOD COUNT 3.97 10^6/uL (3.72-5.28); RED CELL DISTRIBUTION WIDTH 12.6 % (11.5-14.0); SEGMENTED NEUTROPHILS % (AUTO) 69.4 % (42-78); TOTAL CELLS COUNTED % (AUTO) 100 %; WHITE BLOOD COUNT 8.3 10^3/uL (4.0-10.5)
--- NOTE | 2019-12-13 21:48 | RADIOLOGY REPORT (SQ) ---
EXAM DESCRIPTION: US EXTREMITY VEINS UNILATERAL CLINICAL HISTORY: 24 years, Female, pain left leg / Hx clots COMPARISON: None. FINDINGS: Left common femoral, femoral, popliteal, posterior tibial and peroneal veins are demonstrated without clot. Greater saphenous vein is patent. Evaluation of the left anterior knee demonstrates a fluid collection containing a irregular shaped soft tissue lesion with fingerlike projections. The soft tissue component measures approximately 24 x 14 mm. This is presumed to be in the suprapatellar bursa although this is not specifically indicated by technologist report. There is a soft tissue mass in the anterior, superior medial calf. Measures 27 x 14 x 10 mm. Very minimal vascularity noted within this solid mass on color Doppler imaging.. IMPRESSION: 1. No evidence for DVT in the left lower extremity. 2. Abnormal anterior knee presumably suprapatellar bursa. Includes fluid and solid component which may represent tumor or synovial abnormality. 3. Solid lesion in the upper calf. Consider biopsy if diagnosis is not known.
[2019-12-13 22:20] LABS: ALBUMIN 4.1 g/dL (3.5-5.0); ALKALINE PHOSPHATASE 121 U/L (38-126); ANION GAP 6 (5-19); ASPARTATE AMINO TRANSFERASE 34 U/L (14-36); BILIRUBIN,DIRECT 0.1 mg/dL (0.0-0.4); BILIRUBIN,TOTAL 0.6 mg/dL (0.2-1.3); BLOOD UREA NITROGEN 11 mg/dL (7-20); CALCIUM 8.8 mg/dL (8.4-10.2); CARBON DIOXIDE 27 mmol/L (22-30); CHLORIDE 103 mmol/L (98-107); GLUCOSE 95 mg/dL (75-110); POTASSIUM 3.7 mmol/L (3.6-5.0); TOTAL PROTEIN 7.8 g/dL (6.3-8.2)
[2019-12-13 22:39] LABS: C-REACTIVE PROTEIN 52.5 mg/L (<10.0)
--- NOTE | 2019-12-13 22:57 | RADIOLOGY REPORT (SQ) ---
EXAM DESCRIPTION: CT LOWER EXTREMITY WITH IV CONTRAST COMPLETED DATE/TME: 12/13/2019 20:53 CLINICAL HISTORY: 24 years, Female, Ultrasound showed abnormalities in thigh and lower COMPARISON: Plain films 12/13/2019 TECHNIQUE: 1258 Images stored on PACS. All CT scanners at this facility use dose modulation, iterative reconstruction, and/or weight based dosing when appropriate to reduce radiation dose to as low as reasonably achievable (ALARA). [facility]: Dose Right [facility]: CareDose [facility]: Dose Right [facility]: Teradose 4D [facility]: [employer] LIMITATIONS: None. FINDINGS: Small suprapatellar joint effusion. The myofascial planes are preserved. Negative for acute fracture or dislocation. Minor subcutaneous inflammatory change in the posterior aspect of the knee. Ankle mortise is intact. IMPRESSION: Small suprapatellar joint effusion. Minor subcutaneous inflammation posterior to the knee joint. No acute fracture. TECHNICAL DOCUMENTATION: Quality ID # [id number]: Final reports with documentation of one or more dose reduction techniques (e.g., Automated exposure control, adjustment of the mA and/or kV according to patient size, use of iterative reconstruction technique) copyright 2011 [employer]- All Rights Reserved
[2019-12-13] MEDS ORDERED: MORPHINE SULFATE 10 MG/ML INJ IV ONE (23:14)
[2019-12-14 00:39] VITALS: BP 120/79
== END 2019-12-14 00:37 | disposition home or self-care (01) ==
LOC: ER 17:07
DX: M23.92 Unspecified internal derangement of left knee (principal); M54.10 Radiculopathy, site unspecified; M79.662 Pain in left lower leg; M79.89 Other specified soft tissue disorders; M54.5 Low back pain; R00.0 Tachycardia, unspecified; F17.210 Nicotine dependence, cigarettes, uncomplicated
CPT/HCPCS: 99284; 96374; 36415; 85025; 86140; 80053; 93971; 73564; 72110; 73701; J2270

== ENCOUNTER 2020-05-14 19:39 | Emergency (ER) | payer OTHER ==
--- NOTE | 2020-05-14 20:09 | ER Document Report ---
ED Medical Screen (RME) - General Stated Complaint: RIGHT HAND AND ARM SWELLING Time Seen by Provider: 05/14/20 19:58 Primary Care Provider: GERMANIA ULLOA [Primary Care Provider] - Follow up as needed Information source: Patient Notes: Patient presents complaining of numbness and tingling sensation to right upper extremity with swelling. Patient states that she initially thought she might of just slept on her arm wrong but as the day has progressed her arm is darkened in color and swollen. Patient states yesterday she had chest pain although denies any chest pain today. Patient denies any fever. Patient denies any shortness of breath. Patient denies any previous history of any DVT or PE. Patient does admit to smoking. I have greeted and performed a rapid initial assessment of this patient. A comprehensive ED assessment and evaluation of the patient, analysis of test results and completion of the medical decision making process will be conducted by additional ED providers. TRAVEL OUTSIDE OF THE [place] IN LAST 30 DAYS: No - Related Data Allergies/Adverse Reactions: No Known Allergies Allergy (Verified 05/30/16 20:52) Past Medical History Endocrine Medical History: Reports: Hx Diabetes Mellitus Type 2 Renal/ Medical History: Denies: Hx Peritoneal Dialysis - Immunizations Immunizations up to date: Yes Physical Exam - Vital signs Vitals: Temp Pulse Resp BP Pulse Ox 98.6 F 101 H 17 136/80 H 98 05/14/20 19:50 05/14/20 19:50 05/14/20 19:50 05/14/20 19:50 05/14/20 19:50 - General General appearance: Alert Notes: Patient with dusky discoloration of right upper extremity, 2+ radial pulse, normal cap refill to fingers, delayed cap refill to distal right forearm Course - Re-evaluation Re-evalutation: 05/14/20 20:08 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
[2020-05-14 20:38] LABS: ABSOLUTE EOSINOPHILS # (AUTO) 0.2 10^3/uL (0.0-0.6); ABSOLUTE LYMPHOCYTES (AUTO) 2.2 10^3/uL (0.5-4.7); ABSOLUTE MONOCYTES (AUTO) 0.6 10^3/uL (0.1-1.4); ABSOLUTE NEUT (AUTO) 8.3 10^3/uL (1.7-8.2); BASOPHILS % (AUTO) 0.2 % (0-2); EOSINOPHILS % (AUTO) 1.8 % (0-6); HEMATOCRIT 36.8 % (36.0-47.0); HEMOGLOBIN 12.9 g/dL (12.0-15.5); LYMPHOCYTES % (AUTO) 19.8 % (13-45); MEAN CORPUSCULAR HEMOGLOBIN 32.7 pg (27.0-33.4); MEAN CORPUSCULAR HGB CONC 35.1 g/dL (32.0-36.0); MEAN CORPUSCULAR VOLUME 93 fl (80-97); MONOCYTES % (AUTO) 4.9 % (3-13); PLATELET COUNT 232 10^3/uL (150-450); RED BLOOD COUNT 3.96 10^6/uL (3.72-5.28); RED CELL DISTRIBUTION WIDTH 13.2 % (11.5-14.0); SEGMENTED NEUTROPHILS % (AUTO) 73.3 % (42-78); TOTAL CELLS COUNTED % (AUTO) 100 %; WHITE BLOOD COUNT 11.3 10^3/uL (4.0-10.5)
--- NOTE | 2020-05-14 20:41 | EKG REPORT ---
SEVERITY:- BORDERLINE ECG - SINUS TACHYCARDIA PROBABLE LEFT ATRIAL ABNORMALITY BORDERLINE T ABNORMALITIES, DIFFUSE LEADS : Confirmed by: Sandra Rivera MD 14-May-2020 20:40:28
[2020-05-14 20:47] LABS: INTERNATIONAL RATION (INR) 1.01; PARTIAL THROMBOPLASTIN TIME 27.4 SEC (23.5-35.8); PROTHROMBIN TIME 13.5 SEC (11.4-15.4)
[2020-05-14 21:04] LABS: ALBUMIN 4.2 g/dL (3.5-5.0); ALKALINE PHOSPHATASE 132 U/L (38-126); ANION GAP 8 (5-19); ASPARTATE AMINO TRANSFERASE 31 U/L (14-36); BILIRUBIN,DIRECT 0.1 mg/dL (0.0-0.4); BILIRUBIN,TOTAL 0.9 mg/dL (0.2-1.3); BLOOD UREA NITROGEN 12 mg/dL (7-20); CALCIUM 9.4 mg/dL (8.4-10.2); CARBON DIOXIDE 25 mmol/L (22-30); CHLORIDE 104 mmol/L (98-107); GLUCOSE 117 mg/dL (75-110); POTASSIUM 4.2 mmol/L (3.6-5.0); TOTAL PROTEIN 7.5 g/dL (6.3-8.2)
--- NOTE | 2020-05-14 21:28 | RADIOLOGY REPORT (SQ) ---
EXAM DESCRIPTION: Site: CHEST SINGLE VIEW RP: XR CHEST 1 VIEW CLINICAL HISTORY: 25 years Female; cp; COMPARISON: None. FINDINGS: Lungs: Lungs are clear, with no focal infiltrate, pneumothorax, or pleural effusion. Mediastinum: Mediastinum is within normal limits for this positioning. Bones: Bony structures are unremarkable. IMPRESSION: 1. No acute pulmonary findings.
--- NOTE | 2020-05-14 23:02 | ER Document Report ---
ED Extremity Problem, Upper - General Chief Complaint: Arm Pain Stated Complaint: RIGHT HAND AND ARM SWELLING Time Seen by Provider: 05/14/20 19:58 Primary Care Provider: [facility] [Provider Group] - Follow up in 3-5 days Notes: Patient is a 25-year-old female who presents emergency department with a chief complaint of right arm pain and swelling. States that she only has pain when she moves her arm. States that she also had some numbness. Patient has a history of rheumatoid arthritis. TRAVEL OUTSIDE OF THE [place] IN LAST 30 DAYS: No - Related Data Allergies/Adverse Reactions: No Known Allergies Allergy (Verified 05/30/16 20:52) Past Medical History - General Information source: Patient - Social History Smoking Status: Current Every Day Smoker Family History: Reviewed & Not Pertinent, Other - Irritable bowel syndrome Endocrine Medical History: Reports: Hx Diabetes Mellitus Type 2 Renal/ Medical History: Denies: Hx Peritoneal Dialysis - Immunizations Immunizations up to date: Yes Review of Systems - Review of Systems Notes: REVIEW OF SYSTEMS: CONSTITUTIONAL : Denies recent illness. Denies recent unintentional weight loss. Denies fever, chills, or sweats. EENT: Denies eye, ear, throat, or mouth pain, discharge, or symptoms. Denies nasal or sinus congestion. CARDIOVASCULAR: Denies chest pain. RESPIRATORY: Denies shortness of breath, cough, congestion, difficulty breathing, or wheezing. GASTROINTESTINAL: Denies nausea, vomiting, and diarrhea. Denies abdominal pain. Denies constipation. GENITOURINARY: Denies difficulty urinating, burning, blood in urine, urgency or frequency. MUSCULOSKELETAL: Denies neck and back pain. See HPI. SKIN: Denies rash, itchiness, or lesions HEMATOLOGIC : Denies easy bruising or bleeding. LYMPHATIC: Denies swollen, painful, enlarged glands. NEUROLOGICAL: Denies no numbness or tingling denies weakness. Denies headache. Denies altered mental status. Denies alteration in speech. PSYCHIATRIC: Denies stress, anxiety, alteration in sleep patterns, or depression. All other systems reviewed and negative. Physical Exam - Vital signs Vitals: Temp Pulse Resp BP Pulse Ox 98.6 F 101 H 17 136/80 H 98 05/14/20 19:50 05/14/20 19:50 05/14/20 19:50 05/14/20 19:50 05/14/20 19:50 - Notes Notes: PHYSICAL EXAMINATION: GENERAL: Appears well, healthy, well-nourished, no acute distress. HEAD: Normocephalic, atraumatic. EYES: PERRL, conjunctiva normal, all extraocular movements intact, sclera nonicteric ENT: Moist mucous membranes. NECK: Supple, no noticeable swelling, redness, rash. Normal range of motion. LUNGS: Equal breath sounds bilaterally and clear to auscultation. No wheezes rales or rhonchi. CARDIOVASCULAR: S1-S2, regular rate, regular rhythm. Radial pulses 2+, normal. ABDOMEN: Normoactive bowel sounds. Soft, nontender, no guarding, no rebound tenderness, and no masses palpated. EXTREMITIES: Pitting edema noted to right upper extremity. NEUROLOGICAL: Moves all extremities upon command. Strength 5/5 in all extremities. PSYCH: Normal mood, normal affect. SKIN: Warm, dry. No rash, lesions, ulcerations noted. Normal skin turgor. Course - Re-evaluation Re-evalutation: 05/14/20 23:10 Discussed this case with Dr. Gorman. Will 05/15/20 00:59 Nursing staff reported to me that the patient was crying. I then reevaluated the patient and she stated that she was "overwhelmed by everything that was going on." She initially did not open up, but then reported that her friend yesterday. She denies any suicidal or homicidal ideation. Patient reports that she drinks about 3 drinks a day. I asked her if she wanted to help with her drinking and she declined at this time. 05/15/20 02:02 Dr. Cooper, the radiologist called me. The patient has a DVT in the right subclavian area. We will give the patient Lovenox. The patient to cut back on her drinking and eventually quit. Follow-up precautions were given. Verbal discharge instructions were given to the patient. They verbalized understanding. They are stable for discharge. - Vital Signs Vital signs: Temp Pulse Resp BP Pulse Ox 98.6 F 90 18 131/90 H 100 05/14/20 19:50 05/15/20 02:25 05/15/20 02:25 05/15/20 02:25 05/15/20 02:25 - Laboratory Results Result Diagrams: 05/14/20 20:24 05/14/20 20:24 Laboratory Results Interpreted: 05/14/20 05/14/20 20:24 20:24 WBC 11.3 H Absolute Neuts (auto) 8.3 H Glucose 117 H ALT 68 H Alkaline Phosphatase 132 H Critical Laboratory Results Reviewed: No Critical Results - Radiology Results Critical Radiology Results Reviewed: Yes Attending or Supervising Physician who Reviewed Radiology: DAVID GILL IV Discharge - Discharge Clinical Impression: Right arm pain DVT (deep venous thrombosis) Qualifiers: DVT location: upper extremity Chronicity: acute Laterality: right Condition: Stable Disposition: HOME, SELF-CARE Additional Instructions: You have been diagnosed with a clot in your right arm. You have been started on a blood thinner called rivaroxaban. You need to take 15 mg twice daily for the first 21 days. You have been prescribed this medication for the first 3 weeks. It is very important that you follow-up with your primary care physician because after the first 3 weeks, you will be transitioned to 20 mg once daily. Please return to emergency department if you notice worsening pain to the affected area, you began having rectal bleeding, hit your head, develop shortness of breath or chest pain, or have any other symptoms that are concerning to you. Prescriptions: Diazepam [Valium 2 mg Tablet] 2 mg PO Q6HP PRN #6 tablet PRN Reason: Rivaroxaban [Xarelto 15 mg Tablet] 15 mg PO DAILY #21 tablet Forms: Return to Work Referrals: [facility] [Provider Group] - Follow up in 3-5 days
--- NOTE | 2020-05-14 23:03 | RADIOLOGY REPORT (SQ) ---
US UPPER EXTREMITY VEINS HISTORY: Arm pain and swelling. COMPARISON: None. TECHNIQUE: Grayscale, color Doppler, and spectral Doppler images of the right upper extremity were performed. FINDINGS: The internal jugular, subclavian, axillary, brachial, basilic, and cephalic veins are patent and compressible. Normal color Doppler blood flow and augmentation in the aforementioned veins. The distal veins are also patent. IMPRESSION: No DVT in the right upper extremity.
[2020-05-15] MEDS ORDERED: DIAZEPAM 2 MG TABLET PO ONE (00:47)
--- NOTE | 2020-05-15 01:37 | RADIOLOGY REPORT (SQ) ---
CT right arm with contrast on 05/15/2020 at 12:35 AM CLINICAL INDICATION: Right arm swelling, evaluate subclavian DVT TECHNIQUE: Multiple axial images are obtained throughout the right upper arm and right chest following the administration of IV contrast that was administered in the right arm venous system. Sagittal and coronal reformatted images are also performed and reviewed. This exam was performed according to our departmental dose-optimization program, which includes automated exposure control, adjustment of the mA and/or kV according to patient size and/or use of iterative reconstruction technique. Total DLP is 2567.48 mGy*cm. COMPARISON: Ultrasound from 05/14/2020 FINDINGS: The patient was scanned twice with the initial set of images showing contrast filling the superficial venous system without opacification of the deep venous system. A second set of images were performed on a more delayed basis. The delayed imaging does have deep venous filling along with central filling and evidence of contrast in the liver and pulmonary arteries and veins with also good contrast in the SVC. The patient's IV is within a branch connecting to the cephalic vein. There is predominantly superficial venous filling on the early examination related to this. On the more delayed imaging there is some contrast that gets into the brachial vein with predominantly contrast within the cephalic and basilic venous system. There are multiple collateral vessels noted filling in the right shoulder including intramuscular branches in the deltoid and extending up into the right neck. There is no contrast noted in the right axillary and subclavian vein consistent with deep venous thrombus in the right subclavian vein. The right internal jugular vein and brachiocephalic vein and the visualized SVC appear patent. Limited visualized right lung is clear. No mass, adenopathy or fluid collection is noted. No acute bony abnormality is noted. IMPRESSION: Findings consistent with deep venous thrombosis involving the right axillary and subclavian vein.
[2020-05-15] MEDS ORDERED: ENOXAPARIN SODIUM INJ 120 MG/0.8 ML DISP.SYRIN SUBCUT ONE (01:53)
[2020-05-15 02:36] VITALS: BP 131/90
== END 2020-05-15 02:32 | disposition home or self-care (01) ==
LOC: ER 19:39
DX: I82.621 Acute embolism and thrombosis of deep veins of right upper extremity (principal); R20.0 Anesthesia of skin; F17.200 Nicotine dependence, unspecified, uncomplicated; E11.9 Type 2 diabetes mellitus without complications
CPT/HCPCS: 93005; 99285; 96372; 36415; 85025; 85610; 85730; 80053; 93971; 71045; 73201; 93010; J3490; J1650